=== PATIENT | female | born 1940 | race Caucasian/White ===

== ENCOUNTER 2020-01-07 12:40 | Emergency (ER) | payer MEDICARE ==
[~2020-01-07] VITALS: Ht 180 cm; Wt 76.0 kg
--- NOTE | 2020-01-07 13:18 | ED General ---
General Chief Complaint: General Problems/Pain Stated Complaint: SYNCOPE; AMS Source of Information: Patient History of Present Illness Date Seen by Provider: Jan 07, 2020 Time Seen by Provider: 13:13 Initial Comments Sent to ER for syncopal episode and mental status change. Recently moved from home care to the [facility] for physical decline. According to her previous caregiver, she has Hx of periodic syncopal episodes. No suspicion of injury. No difficulty breathing. Allergies and Home Medications Patient Home Medication List Home Medication List Reviewed: Yes Review of Systems Review of Systems Constitutional: no symptoms reported Unable to perform ROS due to pt mental status/ dementia Past Vxnitca-Cotueg-Kyqbdn Hx Past Med/Social Hx: Reviewed Nursing Past Med/Soc Hx Patient Social History Recent Foreign Travel: No Contact w/Someone Who Travel: No Physical Abuse: No Sexual Abuse: No Mistreated: No Fear: No Physical Exam Vital Signs Vital Signs - First Documented 01/07/20 13:19 Temp 36.5 Pulse 119 Resp 18 B/P (MAP) 120/78 (92) Pulse Ox 96 O2 Delivery Room Air Capillary Refill : Height, Weight, BMI Height: '" Weight: lbs. oz. kg; BMI Method: General Appearance: No Apparent Distress, WD/WN HEENT: PERRL/EOMI, Normal ENT Inspection, Pharynx Normal Neck: Normal Inspection, Non Tender, Supple Respiratory: Chest Non Tender, Lungs Clear, Normal Breath Sounds Cardiovascular: Regular Rate, Rhythm, No Edema, No JVD Gastrointestinal: Non Tender, Soft Back: No CVA Tenderness, No Vertebral Tenderness Extremity: Normal Capillary Refill, Normal Inspection, Normal Range of Motion, Non Tender, No Calf Tenderness Neurologic/Psychiatric: Alert, No Motor/Sensory Deficits, Normal Mood/Affect, shoe stock associate II-XII Norm as Tested Skin: Normal Color, Warm/Dry Progress/Results/Core Measures Suspected Sepsis SIRS Temperature: Pulse: Respiratory Rate: Laboratory Tests 01/07/20 13:00: White Blood Count 10.0 Blood Pressure / Mean: Laboratory Tests 01/07/20 13:00: Creatinine 0.74, Platelet Count 375, Total Bilirubin 0.8 Results/Orders Lab Results Laboratory Tests Test 01/07/20 13:00 Range/Units White Blood Count 10.0 4.3-11.0 10^3/uL Red Blood Count 4.28 L 4.35-5.85 10^6/uL Hemoglobin 13.2 11.5-16.0 G/DL Hematocrit 39 35-52 % Mean Corpuscular Volume 92 80-99 FL Mean Corpuscular Hemoglobin 31 25-34 PG Mean Corpuscular Hemoglobin Concent 34 32-36 G/DL Red Cell Distribution Width 12.4 10.0-14.5 % Platelet Count 375 130-400 10^3/uL Mean Platelet Volume 10.4 7.4-10.4 FL Neutrophils (%) (Auto) 75 42-75 % Lymphocytes (%) (Auto) 13 12-44 % Monocytes (%) (Auto) 9 0-12 % Eosinophils (%) (Auto) 2 0-10 % Basophils (%) (Auto) 1 0-10 % Neutrophils # (Auto) 7.5 1.8-7.8 X 10^3 Lymphocytes # (Auto) 1.3 1.0-4.0 X 10^3 Monocytes # (Auto) 0.9 0.0-1.0 X 10^3 Eosinophils # (Auto) 0.2 0.0-0.3 10^3/uL Basophils # (Auto) 0.1 0.0-0.1 10^3/uL Sodium Level 142 135-145 MMOL/L Potassium Level 4.1 3.6-5.0 MMOL/L Chloride Level 105 98-107 MMOL/L Carbon Dioxide Level 25 21-32 MMOL/L Anion Gap 12 5-14 MMOL/L Blood Urea Nitrogen 15 7-18 MG/DL Creatinine 0.74 0.60-1.30 MG/DL Estimat Glomerular Filtration Rate > 60 BUN/Creatinine Ratio 20 Glucose Level 124 H 70-105 MG/DL Calcium Level 9.2 8.5-10.1 MG/DL Corrected Calcium 9.8 8.5-10.1 MG/DL Total Bilirubin 0.8 0.1-1.0 MG/DL Aspartate Amino Transf (AST/SGOT) 50 H 5-34 U/L Alanine Aminotransferase (ALT/SGPT) 61 H 0-55 U/L Alkaline Phosphatase 138 H 40-136 U/L Total Protein 6.8 6.4-8.2 GM/DL Albumin 3.2 3.2-4.5 GM/DL My Orders Orders - SIDDHARTHA CHONG DO Cbc With Automated Diff (01/07/20 13:28) Comprehensive Metabolic Panel (01/07/20 13:28) Urinalysis (01/07/20 13:28) Ekg Tracing (01/07/20 13:28) Vital Signs/I&O 01/07/20 01/07/20 13:19 14:28 Temp 36.5 36.3 Pulse 119 72 Resp 18 16 B/P (MAP) 120/78 (92) 112/68 Pulse Ox 96 99 O2 Delivery Room Air Capillary Refill : Progress Note : Progress Note Her "care-givers" (prior to the [facility] admission 2 days ago) present to the ER and state that she has these fake syncopal episodes, where she holds her eyes shut and her hands shake for a few seconds. Usually when she is stressed or anxious. [facility] is actually at [facility] for [facility] for a recent hip replacement. ECG Initial ECG Impression Time: 13:10 Initial ECG Rate: 122 Initial ECG Rhythm: A Fib/Flutter Initial ECG Impression: Atrial Fibrillation Departure Impression Primary Impression: Syncopal episodes Qualified Codes: R55 - Syncope and collapse Disposition: 01 HOME, SELF-CARE Condition: Stable Departure-Patient Inst. Decision time for Depature: 14:09 Patient Instructions: Syncope (Fainting) (DC) SIDDHARTHA CHONG DO Jan 07, 2020 13:17
[2020-01-07 14:03] LABS: SODIUM 142 MMOL/L (135-145)
[2020-01-07 14:04] LABS: ALANINE AMINOTRANSFERASE 61 U/L (0-55); ALBUMIN 3.2 GM/DL (3.2-4.5); ALKALINE PHOSPHATASE 138 U/L (40-136); BILIRUBIN,TOTAL 0.8 MG/DL (0.1-1.0); BUN/CREATININE RATIO 20; CALCIUM 9.2 MG/DL (8.5-10.1); CARBON DIOXIDE 25 MMOL/L (21-32); CHLORIDE 105 MMOL/L (98-107); CREATININE SERUM 0.74 MG/DL (0.60-1.30); GFR ESTIMATED > 60; GLUCOSE 124 MG/DL (70-105); TOTAL PROTEIN 6.8 GM/DL (6.4-8.2)
[2020-01-07 14:05] LABS: POTASSIUM 4.1 MMOL/L (3.6-5.0)
[2020-01-07 14:06] LABS: HEMOGLOBIN 13.2 G/DL (11.5-16.0); MEAN CORPUSCULAR HEMOGLOBIN 31 PG (25-34)
[2020-01-07 14:07] LABS: BASOPHILS # (AUTO) 0.1 10^3/uL (0.0-0.1); BASOPHILS % (AUTO) 1 % (0-10); EOSINOPHILS # (AUTO) 0.2 10^3/uL (0.0-0.3); EOSINOPHILS % (AUTO) 2 % (0-10); HEMATOCRIT 39 % (35-52); LYMPHOCYTES # (AUTO) 1.3 X 10^3 (1.0-4.0); LYMPHOCYTES % (AUTO) 13 % (12-44); MEAN CORPUSCULAR HGB CONC 34 G/DL (32-36); MEAN CORPUSCULAR VOLUME 92 FL (80-99); MEAN PLATELET VOLUME 10.4 FL (7.4-10.4); MONOCYTES # (AUTO) 0.9 X 10^3 (0.0-1.0); MONOCYTES % (AUTO) 9 % (0-12); NEUTROPHILS # (AUTO) 7.5 X 10^3 (1.8-7.8); NEUTROPHILS % (AUTO) 75 % (42-75); PLATELET COUNT 375 10^3/uL (130-400); RED CELL DISTRIBUTION WIDTH 12.4 % (10.0-14.5)
[2020-01-07 14:28] VITALS: BP 112/68
--- NOTE | 2020-01-07 14:29 | NUR ---
[facility] CALLED AT THIS TIME FOR A RIDE BACK TO FACILITY.
--- OUTSIDE RECORDS SUMMARY | 2020-01-09 11:16 | XMS REPORT | Continuity of Care Document ---
Demographics Preferred Language Unknown Marital Status Unknown Denominational Affiliation Unknown Race Unknown Ethnic Group Unknown Author Organization Unknown Address Unknown Phone Unavailable Allergies There is no data. Medications There is no data. Problems There is no data. Procedures There is no data. Results Test Result Range TSH w/ FREE T4 - 06/23/19 10:00 TSH 3.94 mIU/L 0.40-4.50 T4, FREE 1.2 ng/dL 0.8-1.8 LIPID PANEL - 06/23/19 10:00 CHOLESTEROL, TOTAL 159 mg/dL <200 HDL CHOLESTEROL 51 mg/dL >50 TRIGLYCERIDES 98 mg/dL <150 LDL-CHOLESTEROL 89 mg/dL (calc) NRG CHOL/HDLC RATIO 3.1 (calc) <5.0 NON HDL CHOLESTEROL 108 mg/dL (calc) <13 0 CMP - 06/23/19 10:00 GLUCOSE 101 mg/dL 65-99 UREA NITROGEN (BUN) 22 mg/dL 7-25 CREATININE 1.02 mg/dL 0.60-0.93 eGFR NON-AFR. [place] 53 mL/min/1.73m2 > OR = 60 eGFR 61 mL/min/1.73m2 > OR = 60 BUN/CREATININE RATIO 22 (calc) 6-22 SODIUM 138 mmol/L 135-146 POTASSIUM 4.3 mmol/L 3.5-5.3 CHLORIDE 105 mmol/L 98-110 CARBON DIOXIDE 26 mmol/L 20-32 CALCIUM 9.0 mg/dL 8.6-10.4 PROTEIN, TOTAL 6.5 g/dL 6.1-8.1 ALBUMIN 3.8 g/dL 3.6-5.1 GLOBULIN 2.7 g/dL (calc) 1.9-3.7 ALBUMIN/GLOBULIN RATIO 1.4 (calc) 1.0-2. 5 BILIRUBIN, TOTAL 0.6 mg/dL 0.2-1.2 ALKALINE PHOSPHATASE 97 U/L 33-130 AST 12 U/L 10-35 ALT 10 U/L 6-29 CBC w/MANUAL DIFF - 06/23/19 10:00 WHITE BLOOD CELL COUNT 8.7 Thousand/uL 3 .8-10.8 RED BLOOD CELL COUNT 4.98 Million/uL 3.8 0-5.10 HEMOGLOBIN 15.3 g/dL 11.7-15.5 HEMATOCRIT 47.6 % 35.0-45.0 MCV 95.6 fL 80.0-100.0 MCH 30.7 pg 27.0-33.0 MCHC 32.1 g/dL 32.0-36.0 RDW 12.4 % 11.0-15.0 PLATELET COUNT 330 Thousand/uL 140-400 MPV 10.5 fL 7.5-12.5 ABSOLUTE NEUTROPHILS 5716 cells/uL 1500- 7800 ABSOLUTE MONOCYTES 583 cells/uL 200-950 ABSOLUTE EOSINOPHILS 418 cells/uL 15-500 ABSOLUTE BASOPHILS 78 cells/uL 0-200 NEUTROPHILS 65.7 % NRG LYMPHOCYTES 21.9 % NRG MONOCYTES 6.7 % NRG EOSINOPHILS 4.8 % NRG BASOPHILS 0.9 % NRG ABSOLUTE LYMPHOCYTES 1905 cells/uL 850-3 900 PLATELET ESTIMATION ADEQUATE ADEQUATE CBC MORPHOLOGY NORMAL Comprehensive metabolic panel - 01/07/20 13:00 Serum or plasma sodium measurement (moles/volume) 142 mmol/L 135-145 Serum or plasma potassium measurement (moles/volume) 4.1 mmol/L 3.6-5.0 Serum or plasma chloride measurement (moles/volume) 105 mmol/L 98-107 Carbon dioxide 25 mmol/L 21-32 Serum or plasma anion gap determination (moles/volume) 12 mmol/L 5-14 Serum or plasma urea nitrogen measurement (mass/volume ) 15 mg/dL 7-18 Serum or plasma creatinine measurement (mass/volume) 0.74 mg/dL 0.60-1.30 Serum or plasma urea nitrogen/creatinine mass ratio 20 NRG Serum or plasma creatinine measurement w ith calculation of estimated glomerular filtration rate > NRG Serum or plasma glucose measurement (mass/volume) 124 mg/dL 70-105 Serum or plasma calcium measurement (mass/volume) 9.2 mg/dL 8.5-10.1 Serum or plasma total bilirubin measurement (mass/volu me) 0.8 mg/dL 0.1-1.0 Serum or plasma alkaline phosphatase modesta surement (enzymatic activity/volume) 138 U/L 40-136 Serum or plasma aspartate aminotransfera se measurement (enzymatic activity/volume) 50 U/L 5-34 Serum or plasma alanine aminotransferase measurement (enzymatic activity/volume) 61 U/L 0-55 Serum or plasma protein measurement (mass/volume) 6.8 g/dL 6.4-8.2 Serum or plasma albumin measurement (mass/volume) 3.2 g/dL 3.2-4.5 CALCIUM CORRECTED 9.8 mg/dL 8.5-10.1 Complete blood count (CBC) with automate d white blood cell (WBC) differential - 01/07/20 13:00 Blood leukocytes automated count (number/volume) 10.0 10*3/uL 4.3-11.0 Blood erythrocytes automated count (number/volume) 4.28 10*6/uL 4.35-5.85 Venous blood hemoglobin measurement (mass/volume) 13.2 g/dL 11.5-16.0 Blood hematocrit (volume fraction) 39 % 35-52 Automated erythrocyte mean corpuscular volume 92 [ foz_us] 80-99 Automated erythrocyte mean corpuscular h emoglobin (mass per erythrocyte) 31 pg 25-34 Automated erythrocyte mean corpuscular h emoglobin concentration measurement (mass/volume) 34 g/dL 32-36 Automated erythrocyte distribution width ratio 12. 4 % 10.0- 14.5 Automated blood platelet count (count/volume) 375 10*3/uL 130-400 Automated blood platelet mean volume measurement 10.4 [foz_us] 7.4-10.4 Automated blood neutrophils/100 leukocytes 75 % 42-75 Automated blood lymphocytes/100 leukocytes 13 % 12-44 Blood monocytes/100 leukocytes 9 % 0-12 Automated blood eosinophils/100 leukocytes 2 % 0-10 Automated blood basophils/100 leukocytes 1 % 0-10 Blood neutrophils automated count (number/volume) 7.5 10*3 1.8-7.8 Blood lymphocytes automated count (number/volume) 1.3 10*3 1.0-4.0 Blood monocytes automated count (number/volume) 0. 9 10*3 0.0-1.0 Automated eosinophil count 0.2 10*3/uL 0 .0-0.3 Automated blood basophil count (count/volume) 0.1 10*3/uL 0.0-0.1 Encounters ACCT No. Visit Date/Time Discharge Status Pt. Type Provider Facility Loc./Unit Complaint [id number] 06/23/2019 09:00:00 Document Registration [id number] 01/07/2020 12:43:00 020 15:04:00 DIS Emergency SIDDHARTHA CHONG DO [facility] ER FS SYNCOPE; AMS
== END 2020-01-07 15:04 | disposition home or self-care (01) ==
LOC: ER FS 12:43
DX: R55 Syncope and collapse (principal)
CPT/HCPCS: 36415; 80053; 85025; 93005